=== PATIENT | female | born 1960 | race Caucasian/White ===

== ENCOUNTER → 2016-11-04 | Outpatient (CLI) | payer BC ==
[~2016-11-04] MED LIST: ALPR-411 PO; ATEN50TA8 PO; IBUP-1050 PO; MULT-506 PO; SERT50TA PO
--- NOTE | 2016-11-04 09:05 | DIAGNOSTIC IMAGING REPORT ---
PET/CT SKULL-THIGH CLINICAL HISTORY: COLORECTAL CA COMPARISON STUDY: No previous studies for comparison. FINDINGS: The patient was injected with 14.4 mCi of F 18 labeled FDG. Following the standard induction phase, PET/CT scanning was performed from the skull base the upper thigh region. Activity within the neck is felt to be physiologic. Within the chest, there is no pathologic mediastinal hilar or axillary activity. There is no pathologic parenchymal activity. There is a trace right pleural effusion. There is a 3 mm left lower lobe pulmonary nodule, and 4 x 2 mm right lower lobe pulmonary nodule. Within the abdomen, there is no pathologic hepatic activity. There is no pathologic adrenal activity. There is physiologic urinary tract activity. There is a focus of increased FDG activity with SUV maximum of 9.5, fusing to an area of bowel wall thickening within the sigmoid. This measures 5 cm in length. This likely corresponds the patient's reported primary malignancy. There are a few small lymph nodes within the adjacent mesentery, but these are not FDG avid. There are no FDG avid skeletal lesions. IMPRESSION: 1. FDG avid 5 cm long sigmoid lesion with SUV maximum of 9.5. This likely corresponds the patient's reported malignancy 2. There are few small lymph nodes within the adjacent mesentery, but these are not significantly FDG avid. The largest lymph node measures 9 mm. 3. Nonspecific 3 mm left lower lobe pulmonary nodule and 4 x 2 mm right lower lobe pulmonary nodule 4. No evidence of FDG avid hepatic disease 5. Trace right pleural effusion Electronically signed by: River Deleon M.D. 11/04/2016 9:03 AM Dictated Date/Time: 11/04/2016 8:51 AM
== END | disposition home or self-care (01) ==
LOC: C.PET 06:33
PROVIDERS: ATTEND Surgery
DX: C18.7 Malignant neoplasm of sigmoid colon (principal); R93.8 Abnormal findings on diagnostic imaging of other specified body structures

== ENCOUNTER 2016-11-19 09:27 | Inpatient (IN) | payer BC ==
[2016-11-06 13:13] VITALS: BMI 31.0
--- NOTE | 2016-11-06 13:50 | PAT Medication Instructions ---
Service Date Nov 06, 2016. Current Home Medication List Alprazolam (Xanax), 0.25 MG PO TID PRN for RN Atenolol (Tenormin), 50 MG PO QAM Ibuprofen (Advil), 200 MG PO PRN Multivitamin (Multivitamin), 1 TAB PO QAM Sertraline (Zoloft), 50 MG PO QAM Medication Instructions For Your Scheduled Surgery Ibuprofen (Advil), 200 MG PO PRN (not taking currently) - Hold the following medications the morning of surgery: Multivitamin (Multivitamin), 1 TAB PO QAM - Take the following medications the morning of surgery with a sip of water: Sertraline (Zoloft), 50 MG PO QAM Atenolol (Tenormin), 50 MG PO QAM Alprazolam (Xanax), 0.25 MG PO TID PRN for RN - Take the following medications as scheduled the night before surgery: Alprazolam (Xanax), 0.25 MG PO TID PRN for RN If you have any questions please call us at [phone] or [phone] ( [facility]) or [phone]
[~2016-11-19] VITALS: Ht 165.1 cm; Wt 84.8 kg
[~2016-11-19 09:27] MED LIST changes: +CEFOXITIN IV 2,000 MG in DEXTROSE 5% 50ML 50 ML IV SCH; +LACTATED RINGER'S 1000ML 1,000 ML IV SCH
[2016-11-19 09:56] VITALS: BP 124/67; PULSE 68; TEMP 36.5; O2SAT 98; Ht 165.1 cm; Wt 84.8 kg
[2016-11-19] MEDS ORDERED: SUCCINYLCHOLINE CHLORIDE 20 MG/ML 10 ML VIAL IV ONE (10:29)
[2016-11-19] MEDS ORDERED: ONDANSETRON INJ 2 MG/ML 2 ML VIAL ONE ×2 (10:29→12:29)
[2016-11-19] MEDS ORDERED: LIDOCAINE HCL 2% 2 ML VIAL (20MG/ML) ONE ×2 (10:29→12:29)
[2016-11-19] MEDS ORDERED: NEOSTIGMINE METHYLSULFATE 5 MG/5 ML SYR ONE (10:29)
[2016-11-19] MEDS ORDERED: DEXAMETHASONE SOD INJ 4 MG/ML VIAL ONE ×2 (10:29→12:29)
[2016-11-19] MEDS ORDERED: PHENYLEPHRINE HCL INJ 10 MG/ML VIAL ONE (10:29)
[2016-11-19] MEDS ORDERED: PROPOFOL IV EMULSION 10 MG/ML 20 ML VIAL IV ONE ×2 (10:29→12:29)
[2016-11-19] MEDS ORDERED: EpHEDrine SULFATE INJ 50 MG/ML AMP ONE (10:29)
[2016-11-19] MEDS ORDERED: ROCURONIUM BROMIDE 10 MG/ML 5 ML VIAL ONE ×2 (10:29→13:17)
[2016-11-19] MEDS ORDERED: GLYCOPYRROLATE INJ 0.2 MG/ML VIAL ONE (10:29)
[2016-11-19] MEDS ORDERED: FENTANYL CITRATE INJ 50 MCG/1 ML 2 ML VIAL ONE ×2 (10:30→13:12)
[2016-11-19] MEDS ORDERED: MoRPHine SULFATE 10 MG/ML CARP/VIAL IV PRN (10:30)
[2016-11-19] MEDS ORDERED: ONDANSETRON INJ 2 MG/ML 2 ML VIAL IV PRN ×2 (10:30→15:00)
[2016-11-19] MEDS ORDERED: NALOXONE HCL 0.4 MG/1 ML VIAL/CARP IV PRN ×2 (10:30→15:00)
[2016-11-19] MEDS ORDERED: HYDROmorphone INJ 1 MG/ML SYR IV PRN (10:30)
[2016-11-19] MEDS ORDERED: MEPERIDINE HCL 25 MG/ML CARP IV PRN (10:30)
[2016-11-19] MEDS ORDERED: EpHEDrine SULFATE INJ 50 MG/ML AMP IV PRN (10:30)
[2016-11-19] MEDS ORDERED: PHENYLEPHRINE 100MCG/ML 5ML SYR IV PRN (10:30)
[2016-11-19] MEDS ORDERED: MIDAZOLAM HCL 1 MG/ML 2ML VIAL ONE (10:30)
[2016-11-19] MEDS ORDERED: ATROPINE SULFATE 0.1 MG/ML 5ML SYR IV PRN (10:30)
[2016-11-19] MEDS ORDERED: LABETALOL HCL IV 5 MG/ML 20ML IV PRN (10:30)
[2016-11-19] MEDS ORDERED: FLUMAZENIL 0.1 MG/1 ML 10 ML VIAL IV PRN (10:30)
[2016-11-19] MEDS ORDERED: ACETAMINOPHEN 1000 MG/100 ML IV IV ONE (10:34)
--- NOTE | 2016-11-19 11:53 | History & Physical Bridge Note ---
H&P Re-Evaluation Bridge Note: I have examined the patient, reviewed the History & Physical and in the interval since the performance of the History & Physical I have noted the following changes of clinical significance: No changes noted
[2016-11-19] MEDS ORDERED: HYDROmorphone INJ 2 MG/ML SYR/VIAL ONE (12:45)
[2016-11-19] MEDS ORDERED: PHENYLEPHRINE 100MCG/ML 5ML SYR ONE (13:11)
[2016-11-19] MEDS: SODIUM CHLORIDE 0.9% 1000ML 1,000 ML IV SCH (14:51)
--- NOTE | 2016-11-19 14:51 | [facility] Post Operative Brief Note ---
Immediate Operative Summary Operative Date Nov 19, 2016. Pre-Operative Diagnosis Malignant neoplasm of sigmoid colon. Post-Operative Diagnosis Malignant neoplasm of sigmoid colon. Procedure(s) Performed Laparoscopic assisted sigmoid resection Surgeon Dr. Zimmerman [place] Cutter Surgeon(s) Dorothy Villatoro PA-C Estimated Blood Loss 30 cc Findings See dictation Specimens SIGMOIND COLON-SILK STITCH IS PROXIMAL. Drains None Anesthesia General Complication(s) None Disposition Recovery Room / PACU
[2016-11-19] MEDS ORDERED: HYDROmorphone INJ 1 MG/ML SYR ONE (15:31)
[2016-11-19] MEDS ORDERED: HYDROmorphone HCL 0.5MG/ML 50 ML CASSETTE ONE (15:34)
--- NOTE | 2016-11-19 15:53 | Anesthesiology Progress Note ---
Anesthesia Post Op Note Date & Time Nov 19, 2016 at 15:53 Vital Signs Pain Intensity: 3 Vital Signs Past 12 Hours Date Time Temp Pulse Resp B/P Pulse Ox O2 Delivery O2 Flow Rate FiO2 11/19/16 15:50 55 20 99/48 96 Mask 10 11/19/16 15:40 58 20 107/69 95 Mask 10 11/19/16 15:30 68 15 127/71 93 Mask 11/19/16 15:20 56 15 119/62 99 Mask 11/19/16 15:14 36.2 56 15 111/60 98 Mask 11/19/16 09:56 36.5 68 20 124/67 98 Room Air Notes Mental Status: alert / awake / arousable, participated in evaluation Pt Amnestic to Procedure: Yes Nausea / Vomiting: adequately controlled Pain: adequately controlled Airway Patency, RR, SpO2: stable & adequate BP & HR: stable & adequate Hydration State: stable & adequate Anesthetic Complications: no major complications apparent
[2016-11-19 16:35] VITALS: BP_DIAS 124; PULSE 62; TEMP 36.4; O2SAT 96
[2016-11-19 16:57] VITALS: BP 122/70; PULSE 60; TEMP 36.6; O2SAT 95
--- NOTE | 2016-11-19 17:30 | OPERATIVE REPORT ---
DATE OF OPERATION: 11/19/2016 PREOPERATIVE DIAGNOSIS: Carcinoma of the sigmoid colon. POSTOPERATIVE DIAGNOSIS: Same. PROCEDURE: Laparoscopic assisted sigmoid colectomy with primary end-to-end anastomosis. SURGEON: Mike Zimmerman MD PROPERTY INSURANCE INSPECTOR: Carlita Villatoro PA-C FINDINGS: The tumor had been marked with ink during colonoscopy. It was easily identified in the mid to distal sigmoid colon. She had a lot of redundant sigmoid and descending colon proximal to that. There was some dimpling of the serosa, but there was no gross extension of tumor through the wall. There were no significantly large lymph nodes palpable. The liver was palpated and it was smooth. It was of normal size. There were no palpable nodular lesions. The NG tube was in good position. The remainder of the bowel was palpated and was felt to be normal. There was an umbilical hernia without incarcerated contents. This was included with the incision and was closed during the procedure. TECHNIQUE: The patient was given a general anesthetic and the area was prepped and draped in usual sterile fashion. A small vertical incision was made below the umbilicus, carried down through the subcutaneous tissue to the fascia which was grasped with 2 Caleb clamps and incised between. The peritoneum was identified, incised, and the introducer was placed bluntly. The abdomen was then insufflated to a pressure of 15 mmHg with carbon dioxide. Two 5 mm introducers were placed through right-sided incisions. Traction was placed medially on the sigmoid colon and the peritoneal attachments on the lateral side at the line of Toldt were divided mobilizing the sigmoid colon. That dissection was then carried superiorly along the descending colon. I did not feel that it was necessary to mobilize the splenic flexure as there was a significant amount of redundant bowel. I then worked inferiorly and was able to identify the inking as well as the mass. Once I was sure I had enough bowel to perform an anastomosis without tension, the gas was allowed to escape and a vertical midline incision was extended inferiorly carried down through the layers. The fascia was opened in the midline. The peritoneum was opened along the length of the skin incision and the abdomen was entered. The Bookwalter retractor was placed. An additional mobilization of the distal sigmoid colon was performed down to do just below the sacral promontory. This was carried on both sides. The site for division of the proximal bowel was chosen and the mesentery was off the undersurface of the bowel there. It was divided using a PRANEETH stapler. The mesentery of the sigmoid colon was then divided working down towards the sacral promontory using the LigaSure or a clamp-clamp and cut technique using 2-0 Vicryl suture. When I encountered the sigmoid vessels, they were doubly clamped proximally once near the specimen side divided. The remaining side was ligated with a 2-0 silk tie and then secured with a 2-0 silk suture LigaSure. After completing that working then further down to just below the sacral promontory, it was clear that we were well beyond the mass and had the sigmoid and mesentery isolated and divided. The site for division of the bowel was chosen. The mesentery was away from the bowel there. The lateral stalks were divided using the LigaSure and once it was freed, it was divided using the TA stapler. The specimen was passed off. A silk suture was placed at the proximal margin. The EEA was then used for anastomosis. The proximal staple line was removed and sizers. I determined a 28 EEA would be the appropriate size. The anvil was placed intraluminally and then the bowel was stapled again with the TA stapler. The redundant amount was removed. The trocar sharp tip was then brought out through the bowel wall just anterior to the staple line. The EEA was introduced into the rectum and passed under palpation up to the distal staple line. The trocar was brought out through the bowel wall just anterior to the staple line. The anvil was placed over the trocar and the bowel was approximated. The green was seen in the window. The area for anastomosis was palpated and there was nothing intervening in the anastomosis. The bowel had been checked to be sure that the sigmoid colon was not twisted as the mesentery was posterior. The EEA was fired. It was opened 2-1/2 turns and removed. The donuts were intact. Saline was placed into the pelvis. The bowel was compressed and air was injected. There was no leaking. The omentum was brought down over the anterior surface of the intraabdominal structures. The fascia was established superiorly to include the umbilical hernia in the anastomosis. There was some dissection of the skin off the surface that was performed. The fascia was closed with a running #1 PDS. The subcutaneous tissue was irrigated and irrigation removed and the skin was closed with sonam. The sponge and instrument counts were correct x2 prior to closure. Needle counts were correct as well. The estimated blood loss was 30 mL. The patient tolerated the surgical procedure without complication and was transferred to recovery. I attest to the content of the Intraoperative Record and any orders documented therein. Any exceptio ns are noted below.
[2016-11-19 17:38] VITALS: BP 106/68; PULSE 78; TEMP 36.7; O2SAT 96
[2016-11-19] MEDS: D5W AND 1/2NSS + 20MEQ KCL 1,000 ML IV SCH (17:50)
[2016-11-19] MEDS: CEFOXITIN IV 2,000 MG in DEXTROSE 5% 50ML 50 ML IV SCH (20:22)
[2016-11-19] MEDS: ALUMINUM/MAGNESIUM SUSP 30 ML UDC NG SCH (20:25)
[2016-11-19 21:51] VITALS: BP 132/85; PULSE 69; TEMP 36.9; O2SAT 97
[2016-11-19] MEDS ORDERED: NURSING VERBAL MED ORDER ONE (22:30)
[2016-11-19] MEDS: HYDROmorphone HCL 0.5MG/ML 50 ML CASSETTE IV PRN (22:40)
[2016-11-19] MEDS ORDERED: LACTATED RINGER'S 1000ML 250 ML IV ONE (23:00)
[2016-11-19 23:39] VITALS: BP 118/69; PULSE 81; TEMP 36.8; O2SAT 96
[2016-11-20] MEDS: D5W AND 1/2NSS + 20MEQ KCL 1,000 ML IV SCH ×3 (01:38→17:54)
[2016-11-20 03:15] VITALS: BP 114/64; PULSE 84; TEMP 36.6; O2SAT 98
[2016-11-20] MEDS: CEFOXITIN IV 2,000 MG in DEXTROSE 5% 50ML 50 ML IV SCH ×2 (03:42→12:46)
[2016-11-20 07:00] VITALS: BP 113/69; PULSE 86; TEMP 36.5; O2SAT 94
[2016-11-20] MEDS: HYDROmorphone HCL 0.5MG/ML 50 ML CASSETTE IV PRN ×2 (07:04→18:54)
[2016-11-20 07:05] LABS: BASO % 0.1 %; BASO ABS # 0.01 K/uL (0-0.2); COMPLETE YES; HEMATOCRIT 37.3 % (37-47); IG% 0.2 %; LYMPH % 10.8 %; LYMPH ABS # 1.41 K/uL (1.2-3.4); MEAN CELL VOLUME 86.9 fL (80-100); MEAN CORPUSCULAR HEMOGLOBIN 29.4 pg (25-34); MEAN CORPUSCULAR HGB CONC 33.8 g/dl (32-36); MEAN PLATELET VOLUME 9.4 fL (7.4-10.4); MONO % 4.8 %; NEUT % 84.1 %; PLATELET COUNT 290 K/uL (130-400); RED BLOOD COUNT 4.29 M/uL (4.2-5.4); WHITE BLOOD COUNT 13.08 K/uL (4.8-10.8)
[2016-11-20 07:11] LABS: PROTHROMBIN TIME (PATIENT) 10.5 SECONDS (9.0-12.0)
--- NOTE | 2016-11-20 07:30 | Surgery Progress Note ---
Surgery Progress Note Date of Service Nov 20, 2016. Subjective Post OP Day: 1 + pain controlled, No bowel movement, No flatus, No nausea, No vomiting Objective Vital Signs: Date Time Temp Pulse Resp B/P Pulse Ox O2 Delivery O2 Flow Rate FiO2 11/20/16 03:15 36.6 84 16 114/64 98 Nasal Cannula 2.0 11/19/16 23:50 Nasal Cannula 2.0 11/19/16 23:39 36.8 81 16 118/69 96 Nasal Cannula 2.0 11/19/16 21:51 36.9 69 18 132/85 97 Nasal Cannula 2.0 11/19/16 17:38 36.7 78 16 106/68 96 Nasal Cannula 2.0 11/19/16 16:57 36.6 60 16 122/70 95 Nasal Cannula 2.0 11/19/16 16:35 Nasal Cannula 2.0 11/19/16 16:35 36.4 62 14 /124 96 Nasal Cannula 2.0 11/19/16 16:35 Nasal Cannula 2.0 11/19/16 16:20 58 17 107/55 97 Nasal Cannula 4 11/19/16 16:10 36.2 58 17 117/65 94 Nasal Cannula 4 11/19/16 16:00 60 20 111/56 98 Nasal Cannula 4 11/19/16 15:50 55 20 99/48 96 Mask 10 11/19/16 15:40 58 20 107/69 95 Mask 10 11/19/16 15:30 68 15 127/71 93 Mask 10 11/19/16 15:20 56 15 119/62 99 Mask 10 11/19/16 15:14 36.2 56 15 111/60 98 Mask 10 11/19/16 09:56 36.5 68 20 124/67 98 Room Air Physical Exam: nasogastric drainage (130 cc last shift) Abdomen: non distended, soft, + abnormal bowel sounds (present) Incision(s): clean, dry, intact, no erythema Laboratory Results: Results Past 24 Hours Test 11/20/16 06:35 Range/Units White Blood Count 13.08 4.8-10.8 K/uL Red Blood Count 4.29 4.2-5.4 M/uL Hemoglobin 12.6 12.0-16.0 g/dL Hematocrit 37.3 37-47 % Mean Corpuscular Volume 86.9 80-100 fL Mean Corpuscular Hemoglobin 29.4 25-34 pg Mean Corpuscular Hemoglobin Concent 33.8 32-36 g/dl Platelet Count 290 130-400 K/uL Mean Platelet Volume 9.4 7.4-10.4 fL Neutrophils (%) (Auto) 84.1 % Lymphocytes (%) (Auto) 10.8 % Monocytes (%) (Auto) 4.8 % Eosinophils (%) (Auto) 0.0 % Basophils (%) (Auto) 0.1 % Neutrophils # (Auto) 11.00 1.4-6.5 K/uL Lymphocytes # (Auto) 1.41 1.2-3.4 K/uL Monocytes # (Auto) 0.63 0.11-0.59 K/uL Eosinophils # (Auto) 0.00 0-0.5 K/uL Basophils # (Auto) 0.01 0-0.2 K/uL RDW Standard Deviation 41.9 36.4-46.3 fL RDW Coefficient of Variation 13.1 11.5-14.5 % Immature Granulocyte % (Auto) 0.2 % Immature Granulocyte # (Auto) 0.03 0.00-0.02 K/uL Prothrombin Time 10.5 9.0-12.0 SECONDS Prothromb Time International Ratio 1.0 0.9-1.1 Assessment & Plan S/P sigmoid resection Doing well Demonstrating peristalsis Leave NGT for now Ambulate
[2016-11-20 07:35] LABS: BUN/CREATININE RATIO 11.7 (10-20); CALCIUM 9.2 mg/dl (8.5-10.1); CREATININE 1.3 mg/dl (0.60-1.20); POTASSIUM 4.4 mmol/L (3.5-5.1)
--- NOTE | 2016-11-20 08:03 | Anesthesiology Progress Note ---
Anesthesia Post Op Note Date & Time Nov 20, 2016 at 08:03 Vital Signs Vital Signs Past 12 Hours Date Time Temp Pulse Resp B/P Pulse Ox O2 Delivery O2 Flow Rate FiO2 11/20/16 03:15 36.6 84 16 114/64 98 Nasal Cannula 2.0 11/19/16 23:50 Nasal Cannula 2.0 11/19/16 23:39 36.8 81 16 118/69 96 Nasal Cannula 2.0 11/19/16 21:51 36.9 69 18 132/85 97 Nasal Cannula 2.0 Notes Mental Status: alert / awake / arousable, participated in evaluation Pt Amnestic to Procedure: Yes Nausea / Vomiting: adequately controlled Pain: adequately controlled Airway Patency, RR, SpO2: stable & adequate BP & HR: stable & adequate Hydration State: stable & adequate Anesthetic Complications: no major complications apparent
[2016-11-20] MEDS: ALUMINUM/MAGNESIUM SUSP 30 ML UDC NG SCH ×4 (09:57→20:44)
[2016-11-20] MEDS: SODIUM CHLORIDE 0.9% 1000ML 1,000 ML IV SCH (12:47)
[2016-11-20 15:42] VITALS: BP 115/68; PULSE 68; TEMP 36.8; O2SAT 96
[2016-11-20 16:00] VITALS: O2SAT 96
[2016-11-20] MEDS: ENOXAPARIN 40 MG/0.4 ML SYR SQ SCH (16:13)
[2016-11-20 20:15] VITALS: BP 134/67; PULSE 74; TEMP 36.4; O2SAT 96
[2016-11-20 23:29] VITALS: BP 137/67; PULSE 66; TEMP 36.4; O2SAT 95
[2016-11-21] MEDS: D5W AND 1/2NSS + 20MEQ KCL 1,000 ML IV SCH ×3 (01:21→18:05)
[2016-11-21] MEDS ORDERED: NURSING VERBAL MED ORDER ONE (02:15)
[2016-11-21 03:49] VITALS: BP 109/63; PULSE 69; TEMP 36.3; O2SAT 96
[2016-11-21 05:48] LABS: BASO % 0.2 %; BASO ABS # 0.02 K/uL (0-0.2); COMPLETE YES; EOS % 1.2 %; HEMATOCRIT 34.7 % (37-47); IG% 0.2 %; LYMPH % 28.1 %; LYMPH ABS # 2.65 K/uL (1.2-3.4); MEAN CELL VOLUME 88.5 fL (80-100); MEAN CORPUSCULAR HEMOGLOBIN 28.8 pg (25-34); MEAN CORPUSCULAR HGB CONC 32.6 g/dl (32-36); MEAN PLATELET VOLUME 9.2 fL (7.4-10.4); MONO % 5.2 %; NEUT % 65.1 %; PLATELET COUNT 220 K/uL (130-400); RED BLOOD COUNT 3.92 M/uL (4.2-5.4); WHITE BLOOD COUNT 9.44 K/uL (4.8-10.8)
[2016-11-21 06:10] LABS: BUN/CREATININE RATIO 14.4 (10-20); CALCIUM 8.9 mg/dl (8.5-10.1); CREATININE 0.98 mg/dl (0.60-1.20); POTASSIUM 4.2 mmol/L (3.5-5.1)
--- NOTE | 2016-11-21 07:10 | SURGERY PROGRESS NOTE ---
DATE: 11/21/[address] Zimmerman. Bonnie is first postoperative day status post laparoscopic-assisted colon resection. During the night, I was called about her because she has these panic attacks, she normally takes Xanax at home. We did start her some Ativan. This morning she appears quite calm, although she has got some abdominal distention and the NG drainage is coffee-ground, put out 300 overnight. His urine output was 550. Her last vitals showed a temperature of 36.3, pulse 69, respiration 16, blood pressure 109/63, O2 sats 96 on room air. Laboratory gutiérrez, the hemoglobin this morning is 11.3. There is no white count elevation. Chemistry shows a BUN of 14, creatinine 0.98. At this point, we will increase activity. She is on Lovenox, that may be attributed to some of the coffee-ground aspect of the NG drainage, but having said that, we will go ahead and give her some Protonix, leave the NG tube in for today until her abdomen is a little bit more softer. The dressing is intact.
[2016-11-21 07:13] VITALS: BP 129/70; PULSE 84; TEMP 36.7; O2SAT 96
[2016-11-21] MEDS: HYDROmorphone HCL 0.5MG/ML 50 ML CASSETTE IV PRN ×4 (07:14→23:11)
[2016-11-21] MEDS: ENOXAPARIN 40 MG/0.4 ML SYR SQ SCH (08:46)
[2016-11-21] MEDS: ALUMINUM/MAGNESIUM SUSP 30 ML UDC NG SCH ×4 (08:46→20:39)
[2016-11-21] MEDS: LORAZEPAM INJ 1 MG in SYRINGE 0.5 ML IV PRN (11:34)
[2016-11-21] MEDS: PANTOprazole INJ 40 MG in SYRINGE 0 ML IV SCH (11:34)
[2016-11-21] MEDS: SODIUM CHLORIDE 0.9% 1000ML 1,000 ML IV SCH (14:51)
[2016-11-21 15:14] VITALS: BP 133/81; PULSE 77; TEMP 36.3; O2SAT 97
[2016-11-21 19:43] VITALS: BP 132/81; PULSE 80; TEMP 36.6; O2SAT 96
[2016-11-21 22:54] VITALS: BP 151/80; PULSE 76; TEMP 36.4; O2SAT 97
[2016-11-22] MEDS: D5W AND 1/2NSS + 20MEQ KCL 1,000 ML IV SCH ×3 (01:39→21:42)
[2016-11-22 03:20] VITALS: BP 144/78; PULSE 80; TEMP 36.5; O2SAT 96
[2016-11-22 06:23] LABS: BASO % 0.2 %; BASO ABS # 0.02 K/uL (0-0.2); COMPLETE YES; EOS % 2.7 %; HEMATOCRIT 36.9 % (37-47); IG% 0.2 %; LYMPH % 29.3 %; LYMPH ABS # 2.38 K/uL (1.2-3.4); MEAN CELL VOLUME 86.8 fL (80-100); MEAN CORPUSCULAR HEMOGLOBIN 29.2 pg (25-34); MEAN CORPUSCULAR HGB CONC 33.6 g/dl (32-36); MEAN PLATELET VOLUME 8.9 fL (7.4-10.4); MONO % 4.8 %; NEUT % 62.8 %; PLATELET COUNT 254 K/uL (130-400); RED BLOOD COUNT 4.25 M/uL (4.2-5.4); WHITE BLOOD COUNT 8.13 K/uL (4.8-10.8)
[2016-11-22] MEDS: HYDROmorphone HCL 0.5MG/ML 50 ML CASSETTE IV PRN ×3 (06:45→23:04)
[2016-11-22 06:55] LABS: CREATININE 0.87 mg/dl (0.60-1.20)
[2016-11-22 07:34] VITALS: BP 137/76; PULSE 75; TEMP 36.5; O2SAT 95
[2016-11-22] MEDS ORDERED: OXYCODONE/ACETAMINOPHEN 5-325 TAB PO PRN (08:30)
[2016-11-22] MEDS: ALUMINUM/MAGNESIUM SUSP 30 ML UDC NG SCH (09:00)
[2016-11-22] MEDS: ENOXAPARIN 40 MG/0.4 ML SYR SQ SCH (09:12)
--- NOTE | 2016-11-22 09:12 | SURGERY PROGRESS NOTE ---
DATE: 11/22/[address] Mike Zimmerman. Bonnie is third postoperative day a laparoscopic-assisted sigmoid colon resection for carcinoma. She feels much better this morning than she had been. Her abdomen is softer than it had been. NG output has been minimal. The last vitals showed a temperature of 36.5, pulse 75, respirations 18, blood pressure 137/76 and O2 sats 94 on room air. I\T\O 1300 mL of urine overnight. As stated the NG output was just minimal at 100. The abdomen is much softer. With this point, I will discontinue the NG tube and start her on clear liquids sparingly. She does feel like she needs to pass flatus, but at this time has not had any lower GI activity, so we will wait until advancing her diet more significantly. Laboratory study; this morning her hemoglobin was 12.4, is pretty much unchanged from yesterday, even may be slightly more hemo concentrated. I was worried yesterday with the NG output with a coffee ground material. She is on Lovenox, but I think probably some superficial trauma from the NG tube may have caused this appearance, but no significant pathology. We did start her on Protonix. MTDD
[2016-11-22] MEDS ORDERED: NURSING VERBAL MED ORDER ONE (10:00)
[2016-11-22] MEDS: PANTOprazole INJ 40 MG in SYRINGE 0 ML IV SCH (10:28)
[2016-11-22] MEDS: LORAZEPAM INJ 1 MG in SYRINGE 0.5 ML IV PRN ×2 (10:57→21:41)
[2016-11-22] MEDS: ALUMINUM/MAGNESIUM SUSP 30 ML UDC PO SCH ×3 (13:20→21:00)
[2016-11-22] MEDS: SODIUM CHLORIDE 0.9% 1000ML 1,000 ML IV SCH (14:11)
[2016-11-22 16:08] VITALS: BP 133/76; PULSE 83; TEMP 36.6; O2SAT 97
[2016-11-22 19:07] VITALS: BP 145/84; PULSE 77; TEMP 36.4; O2SAT 97
[2016-11-22 23:22] VITALS: BP 121/74; PULSE 81; TEMP 36.6; O2SAT 98
[2016-11-23 03:32] VITALS: BP 137/80; PULSE 87; TEMP 36.6; O2SAT 98
[2016-11-23] MEDS: HYDROmorphone HCL 0.5MG/ML 50 ML CASSETTE IV PRN ×2 (07:00→15:09)
[2016-11-23 07:54] VITALS: BP 120/90; PULSE 90; TEMP 36.3; O2SAT 98
[2016-11-23 08:23] VITALS: O2SAT 97
[2016-11-23] MEDS: ALUMINUM/MAGNESIUM SUSP 30 ML UDC PO SCH ×4 (08:38→21:52)
[2016-11-23] MEDS: ENOXAPARIN 40 MG/0.4 ML SYR SQ SCH (08:39)
[2016-11-23] MEDS: PANTOprazole INJ 40 MG in SYRINGE 0 ML IV SCH (08:39)
[2016-11-23] MEDS: D5W AND 1/2NSS + 20MEQ KCL 1,000 ML IV SCH ×2 (10:40→23:40)
[2016-11-23 11:44] VITALS: BP 130/84; PULSE 92; TEMP 36.5; O2SAT 97
[2016-11-23] MEDS: LORAZEPAM INJ 1 MG in SYRINGE 0.5 ML IV PRN ×2 (13:30→23:41)
[2016-11-23] MEDS: SODIUM CHLORIDE 0.9% 1000ML 1,000 ML IV SCH (14:51)
--- NOTE | 2016-11-23 15:45 | Surgery Progress Note ---
Surgery Progress Note Date of Service Nov 23, 2016. Subjective Post OP Day: 4 + bowel movement, + diet (toerating clears), + feeling well, + flatus, + pain controlled, No nausea, No vomiting Objective Vital Signs: Date Time Temp Pulse Resp B/P Pulse Ox O2 Delivery O2 Flow Rate FiO2 11/23/16 11:44 36.5 92 19 130/84 97 Room Air 11/23/16 08:23 97 Room Air 11/23/16 08:15 Room Air 11/23/16 07:54 36.3 90 18 120/90 98 Room Air 11/23/16 03:32 36.6 87 14 137/80 98 Room Air 11/22/16 23:55 Room Air 11/22/16 23:22 36.6 81 18 121/74 98 Room Air 11/22/16 19:07 36.4 77 18 145/84 97 Room Air 11/22/16 16:50 Room Air 11/22/16 16:08 36.6 83 16 133/76 97 Room Air Abdomen: non tender, non distended, soft Incision(s): clean, dry, intact, no drainage Assessment & Plan S/P sigmoid resection Doing well Tolerating clear liquids, advance to full liquid diet Ambulate Change to PO analgesia
[2016-11-23 16:05] VITALS: BP 118/79; PULSE 81; TEMP 36.6; O2SAT 97
[2016-11-23 23:24] VITALS: BP 151/81; PULSE 97; TEMP 36.3; O2SAT 97
--- NOTE | 2016-11-24 06:22 | Surgery Progress Note ---
Surgery Progress Note Date of Service Nov 24, 2016. Subjective Post OP Day: 5 + bowel movement, + diet (tolerated full liquids), + feeling well, + flatus, No nausea, No vomiting Objective Vital Signs: Date Time Temp Pulse Resp B/P Pulse Ox O2 Delivery O2 Flow Rate FiO2 11/23/16 23:39 Room Air 11/23/16 23:24 36.3 97 14 151/81 97 Room Air 11/23/16 16:59 Room Air 11/23/16 16:05 36.6 81 18 118/79 97 Room Air 11/23/16 11:44 36.5 92 19 130/84 97 Room Air 11/23/16 08:23 97 Room Air 11/23/16 08:15 Room Air 11/23/16 07:54 36.3 90 18 120/90 98 Room Air Abdomen: normal bowel sounds, non tender, non distended, soft Incision(s): clean, dry, intact, no erythema, no drainage Assessment & Plan S/P sigmoid resection Doing well Tolerating full liquids, advance to soft diet Ambulate
[2016-11-24 08:11] VITALS: BP 133/89; PULSE 87; TEMP 36.5; O2SAT 97
[2016-11-24] MEDS: ALUMINUM/MAGNESIUM SUSP 30 ML UDC PO SCH ×4 (09:00→21:00)
[2016-11-24] MEDS: ENOXAPARIN 40 MG/0.4 ML SYR SQ SCH (09:20)
[2016-11-24] MEDS: PANTOprazole INJ 40 MG in SYRINGE 0 ML IV SCH (10:51)
[2016-11-24] MEDS: LORAZEPAM INJ 1 MG in SYRINGE 0.5 ML IV PRN (10:51)
[2016-11-24 15:56] VITALS: BP 135/82; PULSE 84; TEMP 36.3; O2SAT 98
[2016-11-24] MEDS ORDERED: NURSING VERBAL MED ORDER ONE (20:00)
[2016-11-24] MEDS: LORAZEPAM 1 MG TAB PO PRN (21:59)
[2016-11-24 23:03] VITALS: BP 109/62; PULSE 74; TEMP 36.5; O2SAT 96
[2016-11-25 07:45] LABS: HEMATOCRIT 35.7 % (37-47); MEAN CORPUSCULAR HEMOGLOBIN 29.8 pg (25-34); MEAN PLATELET VOLUME 8.9 fL (7.4-10.4); PLATELET COUNT 279 K/uL (130-400); WHITE BLOOD COUNT 6.15 K/uL (4.8-10.8)
[2016-11-25 08:03] VITALS: BP 128/80; PULSE 86; TEMP 36.6; O2SAT 96
--- NOTE | 2016-11-25 08:10 | Surgery Progress Note ---
Surgery Progress Note Date of Service Nov 25, 2016. Subjective Post OP Day: 6 + bowel movement, + diet (tolerated regular diet), + feeling well, + flatus, No complaints, No nausea, No vomiting Objective Vital Signs: Date Time Temp Pulse Resp B/P Pulse Ox O2 Delivery O2 Flow Rate FiO2 11/25/16 08:03 36.6 86 16 128/80 96 Room Air 11/25/16 08:00 Room Air 11/24/16 23:31 Room Air 11/24/16 23:03 36.5 74 18 109/62 96 Room Air 11/24/16 15:56 36.3 84 16 135/82 98 Room Air 11/24/16 15:15 Room Air 11/24/16 08:11 36.5 87 16 133/89 97 Room Air Abdomen: non tender, non distended, soft Incision(s): clean, dry, intact, no erythema, no drainage Laboratory Results: Results Past 24 Hours Test 11/25/16 07:21 Range/Units White Blood Count 6.15 4.8-10.8 K/uL Red Blood Count 4.20 4.2-5.4 M/uL Hemoglobin 12.5 12.0-16.0 g/dL Hematocrit 35.7 37-47 % Mean Corpuscular Volume 85.0 80-100 fL Mean Corpuscular Hemoglobin 29.8 25-34 pg Mean Corpuscular Hemoglobin Concent 35.0 32-36 g/dl RDW Standard Deviation 39.4 36.4-46.3 fL RDW Coefficient of Variation 12.9 11.5-14.5 % Platelet Count 279 130-400 K/uL Mean Platelet Volume 8.9 7.4-10.4 fL Assessment & Plan S/P sigmoid resection Doing well Tolerating soft diet D/C to home Instructions discussed Path pending S/P sigmoid resection Doing well Tolerating full liquids, advance to soft diet Ambulate
[2016-11-25 08:14] LABS: CREATININE 0.9 mg/dl (0.60-1.20)
--- NOTE | 2016-11-25 08:14 | Discharge Instructions ---
Discharge Instructions Admission Reason for Admission: Malignant Neoplasm Of Sigmoid Colon Discharge Discharge Diagnosis / Problem: Same Discharge Goals Goal(s): Improve disease control Activity Recommendations Activity Limitations: per Instructions/Follow-up section Lifting Limitations: no more than 10 pounds Exercise/Sports Limitations: none Shower/Bathe: no limitations (Shower only) Driving or Machine Use: resume after 2 weeks . Instructions / Follow-Up Instructions / Follow-Up Post-Surgical ~ Discharge Instructions Activity Recommendations: - lifting limitation: (10 pounds for 6 weeks), - exercise/sex/sports limit: (nonstrenuous for 6 weeks), - driving or machine use limit: (none for 2 week), Diet: - Soft diet SPECIAL CARE INSTRUCTIONS: - Call the surgeon's office with any questions or concerns. - - (ex. temperature higher than 101 degrees F, excessive bleeding or pain). MEDICATIONS: - Resume previous medications unless instructed otherwise by your surgeon. - Ibuprofen 600 mg every 6 hours with food - Percocet 1 every 4 hours, as needed for pain FOLLOW UP VISIT: - If not already scheduled, please call the office to schedule a follow-up appointment for next week. Office number Current Hospital Diet Patient's current hospital diet: Low Fiber Diet Discharge Diet Recommended Diet: Low Fiber Diet Procedures Procedures Performed: Laparoscopic assisted sigmoid resection Pending Studies Studies pending at discharge: no Medical Emergencies . Who to Call and When: Medical Emergencies: If at any time you feel your situation is an emergency, please call 911 immediately. . Non-Emergent Contact Non-Emergency issues call your: Primary Care Provider, Surgeon Call Non-Emergent contact if: your pain is worsening, wound has increased drainage, wound has increased redness, wound has increased pain . "Provider Documentation" section prepared by Mike Zimmerman. VTE Core Measure Inpt VTE Proph given/why not?: Treatment not indicated
--- NOTE | 2016-11-25 08:46 | DISCHARGE SUMMARY ---
PRINCIPAL DIAGNOSIS: Carcinoma of the sigmoid colon. Path is pending. SECONDARY DIAGNOSIS: Hypertension. PRINCIPAL PROCEDURE: Laparoscopic assisted sigmoid colon resection with end-to-end anastomosis. SECONDARY PROCEDURES: None. CONSULTATIONS: None. HISTORY AND PHYSICAL: As per H\T\P on chart. BRIEFLY: This is a 56-year-old female who underwent her first colonoscopy prior to her initial visit with me. She was found to have a mass in the sigmoid colon. There was no evidence of obstruction and biopsies demonstrated moderately differentiated invasive adenocarcinoma. She had a CT scan of the chest, abdomen and pelvis that confirmed the presence of the mass in the mid sigmoid colon. There were multiple abnormal lymph nodes in the mesentery there as well. There was no distant lymphadenopathy. There were multiple 4 mm parenchymal nodules in the lung that were suspicious for metastasis; however, PET scan did not show that these were dilated. On exam her lungs were clear Regular abdomen was soft, nondistended, nontender and there were no palpable masses. She underwent a bowel prep prior to the procedure. HOSPITAL COURSE: She was admitted through day surgery and under general anesthesia underwent laparoscopic assisted sigmoid colon resection. Findings at the time of surgery revealed the mass within just about the center of the sigmoid colon. There were no grossly palpable lymph nodes. The liver was felt to be normal by palpation. There were no other lesions identified. She had an NG tube and [place]. Her urine output remained adequate. Her NG tube was removed on postoperative day #2. Her diet was then progressed to a soft diet by the time of discharge, which she was tolerating. She was moving her bowels. She had very little abdominal pain at the time of discharge. Her incision was healing well. Her white blood cell count on the day of discharge was 6.15. Her H\T\H was 12.5 and 35.7. She was discharged to home in stable condition. Her discharge medications included only the Xanax, Tenormin, Advil, and Zoloft that she was on prior to discharge. Additional medications included Percocet for pain. She was given discharge instructions. She was to follow up with me next week for staple removal. Pathology is pending at this time.
[2016-11-25] MEDS: ALUMINUM/MAGNESIUM SUSP 30 ML UDC PO SCH (09:00)
[2016-11-25] MEDS: ENOXAPARIN 40 MG/0.4 ML SYR SQ SCH (09:12)
[2016-11-25] MEDS: LORAZEPAM 1 MG TAB PO PRN (09:12)
[2016-11-25 10:04] VITALS: BP 128/80; PULSE 86; TEMP 36.6; O2SAT 96
--- NOTE | 2016-12-01 14:34 | EDITING REQUIRED CODING QUERY ---
PATHOLOGY To promote full compliance with coding requirements relating to patient care, physician participation is requested in all cases of equipment service technician uncertainty. Please assist us with the question(s) below: Please review the Pathology report and please document any relevant diagnosis(es) below: Thank you. SIMEON Hanna [facility] Diagnosis(es): Carcinoma of the colon with lymph node metastasis
== END 2016-11-25 10:50 | disposition home or self-care (01) | DRG 330 ==
LOC: ENRESERVDT → ENRESERVTM → C.ACU 09:27 → C.MSN 16:51
PROVIDERS: ADMIT Surgery; ATTEND Surgery
PROC: 0DTN0ZZ Resection of Sigmoid Colon, Open Approach (ICD-10-PCS; principal; 2016-11-19 11:30)
PROC: 0WQF0ZZ Repair Abdominal Wall, Open Approach (ICD-10-PCS; principal; 2016-11-19 11:30)
DX: C18.7 Malignant neoplasm of sigmoid colon (principal); C77.2 Secondary and unspecified malignant neoplasm of intra-abdominal lymph nodes; I10 Essential (primary) hypertension; F41.1 Generalized anxiety disorder; K42.9 Umbilical hernia without obstruction or gangrene

== ENCOUNTER → 2016-12-31 | Day surgery (SDC) | payer BC ==
[2016-12-28 16:06] VITALS: BMI 31.0
[~2016-12-31] VITALS: Ht 165.1 cm; Wt 84.8 kg
[~2016-12-31] MED LIST changes: +ATROPINE SULFATE 0.1 MG/ML 5ML SYR IV PRN; +CEFAZOLIN 2000 MG/60 ML D5W IV SCH; -CEFOXITIN IV 2,000 MG in DEXTROSE 5% 50ML 50 ML IV SCH; +EpHEDrine SULFATE INJ 50 MG/ML AMP IV PRN; +FENTANYL CITRATE INJ 50 MCG/1 ML 2 ML VIAL IV PRN; +FENTANYL CITRATE INJ 50 MCG/1 ML 2 ML VIAL ONE; +HEPARIN 500 UNITS/5ML FLUSH SYRINGE FLUSH ONE; +HYDROmorphone INJ 1 MG/ML SYR IV PRN; +IBUPROFEN 800 MG TAB PO PRN; +LABETALOL HCL IV 5 MG/ML 20ML IV PRN; +LIDOCAINE HCL 1% 20 ML VIAL ONE; +LIDOCAINE HCL 2% 2 ML VIAL (20MG/ML) ONE; +MEPERIDINE HCL 25 MG/ML CARP IV PRN; +MIDAZOLAM HCL 1 MG/ML 2ML VIAL ONE; +ONDANSETRON INJ 2 MG/ML 2 ML VIAL IV PRN; +OXYCODONE/ACETAMINOPHEN 5-325 TAB PO PRN; +PROPOFOL IV EMULSION 10 MG/ML 20 ML VIAL IV ONE; +SODIUM CHLORIDE 0.9% 1000ML 1,000 ML IV SCH; +SODIUM CHLORIDE 0.9% 100ML BAG IV ONE
[2016-12-31 12:09] VITALS: BP 140/63; PULSE 68; TEMP 36.6; O2SAT 98; Ht 165.1 cm; Wt 84.8 kg
--- NOTE | 2016-12-31 18:01 | [facility] Post Operative Brief Note ---
Immediate Operative Summary Operative Date Dec 31, 2016. Pre-Operative Diagnosis Need for customer facilities supervisor central venous access Post-Operative Diagnosis Same Procedure(s) Performed Placement of [place] Surgeon Mike Zimmerman MD Transcription Coordinator Surgeon(s) Carlita Villatoro PA-C Estimated Blood Loss 5 cc Findings See dictation Specimens None Drains None Anesthesia Local with sedation Complication(s) None Disposition Recovery Room / PACU
--- NOTE | 2016-12-31 18:05 | Discharge Instructions ---
Discharge Instructions Date of Service Dec 31, 2016. 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 Instructions / Follow-Up Instructions / Follow-Up MEDICATIONS: Resume previous medications unless instructed otherwise by your surgeon. * Ibuprofen 600 mg every 6 hours with food * Tylenol 650 mg every 4 hours, as needed for pain SPECIAL CARE INSTRUCTIONS: * Your A-port may be used immediately. * May shower in 24 hours. Let water run over area and pat dry. * Leave op-site dressing on for 3 days and then remove. * Call the surgeon's office with any questions or concerns - (ex. temperature higher than 101 degrees F, excessive bleeding or pain). FOLLOW UP VISIT: If not already scheduled, please call the office to schedule a follow-up appointment if there are any questions. Office number Current Hospital Diet Patient's current hospital diet: Discharge Diet Recommended Diet: Regular Diet Procedures Procedures Performed: Placement of Aport Pending Studies Studies pending at discharge: no Medical Emergencies . Who to Call and When: Medical Emergencies: If at any time you feel your situation is an emergency, please call 911 immediately. . Non-Emergent Contact Non-Emergency issues call your: Primary Care Provider, Oncologist, Surgeon Call Non-Emergent contact if: your pain is unusual for you, wound has increased redness, wound has increased pain . "Provider Documentation" section prepared by Mike Zimmerman. VTE Core Measure Inpt VTE Proph given/why not?: Treatment not indicated
--- NOTE | 2016-12-31 18:31 | Anesthesiology Progress Note ---
Anesthesia Post Op Note Date & Time Dec 31, 2016 at 18:31 Vital Signs Pain Intensity: 0 Vital Signs Past 12 Hours Date Time Temp Pulse Resp B/P Pulse Ox O2 Delivery O2 Flow Rate FiO2 12/31/16 18:21 113/64 12/31/16 18:20 58 16 97 12/31/16 18:20 56 16 12/31/16 18:16 121/66 12/31/16 18:15 59 18 12/31/16 18:15 58 18 97 12/31/16 18:11 127/64 12/31/16 18:10 60 98 12/31/16 18:10 36.6 67 16 127/64 97 Room Air 12/31/16 18:10 60 12/31/16 12:09 36.6 68 18 140/63 98 Room Air Notes Mental Status: alert / awake / arousable, participated in evaluation Pt Amnestic to Procedure: Yes Nausea / Vomiting: adequately controlled Pain: adequately controlled Airway Patency, RR, SpO2: stable & adequate BP & HR: stable & adequate Hydration State: stable & adequate Anesthetic Complications: no major complications apparent
--- NOTE | 2016-12-31 18:31 | DIAGNOSTIC IMAGING REPORT ---
CHEST ONE VIEW PORTABLE HISTORY: S/P Aport placement COMPARISON: None. FINDINGS: Left subclavian Port-A-Cath terminates in the distal SVC. No pneumothorax. The lungs are clear. The heart is normal in size. No pleural effusions. IMPRESSION: Left subclavian Port-A-Cath terminates in the distal SVC. No pneumothorax. Electronically signed by: Alberto Desai M.D. 12/31/2016 6:30 PM Dictated Date/Time: 12/31/2016 6:29 PM
[2016-12-31 18:44] VITALS: BP 118/59; PULSE 58; TEMP 37.1; O2SAT 94
[2016-12-31 19:15] VITALS: BP 102/51; PULSE 56; TEMP 36.5; O2SAT 96
--- NOTE | 2016-12-31 22:55 | OPERATIVE REPORT ---
DATE OF OPERATION: 12/31/2016 PREOPERATIVE DIAGNOSIS: Need for long-term central venous access. POSTOPERATIVE DIAGNOSIS: Same. PROCEDURE: Placement of A-port tunneled central venous access catheter with port. SURGEON: Mike Zimmerman MD [employer]LOOR WORKER [employer] SERVICE: Carlita Villatoro PA-C FINDINGS: The tip of the catheter was placed near the superior vena cava right atrial junction. The port was accessed and there was good blood return and it was easily flushed. TECHNIQUE: The patient was given an intravenous sedation and the area was prepped and draped in the usual sterile fashion. Skin and subcutaneous tissue in the left infraclavicular area were anesthetized with 1% Xylocaine without epinephrine. The left subclavian vein was entered on the first attempt and the wire passed with ease. The tip of the wire was confirmed in the right atrium by fluoroscopy. A small incision was made in the skin level at the exit site of the wire and a pocket was created in the subcutaneous tissue to ensure soft turn in the catheter. Site for the port was chosen and the skin and subcutaneous tissues superior to that were anesthetized with 1% Xylocaine without epinephrine. Skin incision was made and was carried down through the subcutaneous tissue to the prepectoral fascia. Hemostasis was obtained using electrocautery. A prepectoral pocket was created and the port fit nicely. The introducer sheath device was passed over the wire under fluoroscopic guidance. The introducer and wire were removed and the catheter was passed through the sheath under fluoroscopic guidance and the tip was seen to enter the right atrium. The sheath was peeled. The catheter was then tunneled from the infraclavicular incision to the port incision using the tunneling device. Fluoroscopy was then used to size the catheter. The catheter was cut and attached to the port with ease. The port was secured to the prepectoral fascia using 2-0 Prolene sutures. The port was accessed with findings as above. The port incision was closed with running 2-0 Vicryl in the deep subcutaneous tissue, running 3-0 Vicryl in the superficial subcutaneous tissue and running 4-0 Monocryl in a subcuticular fashion for the skin. The infraclavicular incision was closed with an interrupted subcuticular suture of 4-0 Monocryl. Estimated blood loss was 5 mL. Sponge, needle and instrument counts were correct prior to closure. The patient tolerated the surgical procedure without complication and was transferred to recovery. I attest to the content of the Intraoperative Record and any orders documented therein. Any exceptio ns are noted below.
== END | disposition home or self-care (01) ==
LOC: C.ACU 11:36
PROVIDERS: ATTEND Surgery
DX: C18.7 Malignant neoplasm of sigmoid colon (principal); I10 Essential (primary) hypertension; F41.9 Anxiety disorder, unspecified; Z98.890 Other specified postprocedural states